=== PATIENT | male | born 1940 | race Caucasian/White ===

== ENCOUNTER 2017-12-26 14:13 | Inpatient (IN) | payer MEDICARE ==
[~2017-12-26] VITALS: Ht 170.2 cm; Wt 93.0 kg
[2017-12-26 14:22] VITALS: BP 129/58; PULSE 94; RESP 16; TEMP 98.5; O2SAT 100
[2017-12-26 15:03] LABS: AUTOMATED NEUTROPHIL # 5.4 TH/MM3 (1.8-7.7); BASOPHIL # 0.1 TH/MM3 (0-0.2); BASOPHIL % 0.7 % (0.0-2.0); EOSINOPHIL # 0.1 TH/MM3 (0-0.4); EOSINOPHIL % 1.4 % (0.0-4.0); HEMATOCRIT 21.9 % (39.0-51.0); HEMOGLOBIN 7.4 GM/DL (13.0-17.0); LYMPH % 28.6 % (9.0-44.0); LYMPHOCYTE # 2.6 TH/MM3 (1.0-4.8); MEAN CELL VOLUME 82.5 FL (80.0-100.0); MEAN CORPUSCULAR HEMOGLOBIN 27.9 PG (27.0-34.0); MEAN CORPUSCULAR HGB CONC 33.8 % (32.0-36.0); MEAN PLATELET VOLUME 8.7 FL (7.0-11.0); MONO % 7.4 % (0.0-8.0); MONOCYTE # 0.7 TH/MM3 (0-0.9); NEUT % 61.9 % (16.0-70.0); PLATELET COUNT 230 TH/MM3 (150-450); RED BLOOD COUNT 2.65 MIL/MM3 (4.50-5.90); RED CELL DISTRIBUTION WIDTH 15.1 % (11.6-17.2); WHITE BLOOD COUNT 8.9 TH/MM3 (4.0-11.0)
[2017-12-26 15:14] LABS: CHLORIDE 104 MEQ/L (98-107); SODIUM (NA) 136 MEQ/L (136-145)
[2017-12-26 15:17] LABS: ALBUMIN 3.2 GM/DL (3.4-5.0); BICARBONATE 22.4 MEQ/L (21.0-32.0); BLOOD UREA NITROGEN 25 MG/DL (7-18); CALCIUM 8.1 MG/DL (8.5-10.1); GLUCOSE,RANDOM 178 MG/DL (74-106)
[2017-12-26 15:20] LABS: ALT (GPT) 18 U/L (12-78); AST (GOT) 16 U/L (15-37)
[2017-12-26 15:21] LABS: CREATININE 0.98 MG/DL (0.60-1.30); GLOMERULAR FILTRATION RATE 74 ML/MIN (>89)
[2017-12-26 15:22] LABS: TOTAL BILIRUBIN ADULT 0.2 MG/DL (0.2-1.0); TOTAL PROTEIN 6.2 GM/DL (6.4-8.2)
[2017-12-26 15:23] LABS: ALKALINE PHOSPHATASE 64 U/L (45-117)
[2017-12-26 15:25] LABS: TROPONIN I LESS THAN 0.02 NG/ML (0.02-0.05)
--- NOTE | 2017-12-26 16:22 | PD ---
HPI Chief Complaint: GI Complaint Time Seen by Provider: 14:30 Travel History International Travel<30 days: No Contact w/Intl Traveler<30days: No Traveled to known affect area: No History of Present Illness HPI This is a 77-year-old male who presented to the ER complaining of black stool. Patient states that he had hamburger 4 days ago and since then he noticed black stool, he denies any blurred vision no dizziness no nausea or vomiting or diarrhea, there is no lightheadedness or loss of consciousness or palpitations. Patient had upper endoscopy done about a year ago at [place], he is unsure when was the last time he had a colonoscopy but states when he had a colonoscopy was normal. PFSH Past Medical History Hx Anticoagulant Therapy: Yes (ASA 81MG DAILY) Social History Tobacco Use: No Allergies-Medications (Allergen,Severity, Reaction): Coded Allergies: Sulfa (Sulfonamide Antibiotics) (Verified Allergy, Severe, HIVES, 12/26/17) Review of Systems Except as stated in HPI: all other systems reviewed are Neg Physical Exam Narrative GENERAL: Alert oriented 3 no acute distress. SKIN: Focused skin assessment warm/dry. HEAD: Atraumatic. Normocephalic. EYES: Pupils equal and round. No scleral icterus. No injection or drainage. ENT: No nasal bleeding or discharge. Mucous membranes pink and moist. NECK: Trachea midline. No JVD. CARDIOVASCULAR: Regular rate and rhythm. No murmur appreciated. RESPIRATORY: No accessory muscle use. Clear to auscultation. Breath sounds equal bilaterally. GASTROINTESTINAL: Abdomen soft, non-tender, nondistended. Hepatic and splenic margins not palpable. MUSCULOSKELETAL: No obvious deformities. No clubbing. No cyanosis. No edema. NEUROLOGICAL: Awake and alert. No obvious cranial nerve deficits. Motor grossly within normal limits. Normal speech. PSYCHIATRIC: Appropriate mood and affect; insight and judgment normal. Data Data Last Documented VS Vital Signs Date Time Temp Pulse Resp B/P (MAP) Pulse Ox O2 Delivery O2 Flow Rate FiO2 12/26/17 14:22 98.5 94 16 129/58 (81) 100 Orders Orders Complete Blood Count With Diff (12/26/17 14:40) Comprehensive Metabolic Panel (12/26/17 14:40) Troponin I (12/26/17 14:40) Occult Blood (Hemoccult) Stool (12/26/17 14:40) Admit Order (Ed Use Only) (12/26/17 16:17) Labs Laboratory Tests Test 12/26/17 14:54 White Blood Count 8.9 TH/MM3 Red Blood Count 2.65 MIL/MM3 Hemoglobin 7.4 GM/DL Hematocrit 21.9 % Mean Corpuscular Volume 82.5 FL Mean Corpuscular Hemoglobin 27.9 PG Mean Corpuscular Hemoglobin Concent 33.8 % Red Cell Distribution Width 15.1 % Platelet Count 230 TH/MM3 Mean Platelet Volume 8.7 FL Neutrophils (%) (Auto) 61.9 % Lymphocytes (%) (Auto) 28.6 % Monocytes (%) (Auto) 7.4 % Eosinophils (%) (Auto) 1.4 % Basophils (%) (Auto) 0.7 % Neutrophils # (Auto) 5.4 TH/MM3 Lymphocytes # (Auto) 2.6 TH/MM3 Monocytes # (Auto) 0.7 TH/MM3 Eosinophils # (Auto) 0.1 TH/MM3 Basophils # (Auto) 0.1 TH/MM3 CBC Comment DIFF FINAL Differential Comment Blood Urea Nitrogen 25 MG/DL Creatinine 0.98 MG/DL Random Glucose 178 MG/DL Total Protein 6.2 GM/DL Albumin 3.2 GM/DL Calcium Level 8.1 MG/DL Alkaline Phosphatase 64 U/L Aspartate Amino Transf (AST/SGOT) 16 U/L Alanine Aminotransferase (ALT/SGPT) 18 U/L Total Bilirubin 0.2 MG/DL Sodium Level 136 MEQ/L Potassium Level 3.6 MEQ/L Chloride Level 104 MEQ/L Carbon Dioxide Level 22.4 MEQ/L Anion Gap 10 MEQ/L Estimat Glomerular Filtration Rate 74 ML/MIN Troponin I LESS THAN 0.02 NG/ML MDM Medical Decision Making Medical Screen Exam Complete: Yes Emergency Medical Condition: Yes Differential Diagnosis Upper GI bleed, lower GI bleed, Malignancy, ulcer Narrative Course This is a 77-year-old male who presents to the ER complaining of black stool for the last 4 days, his hemoglobin of 7.4, patient is little tachycardic. Will admit the patient for 23 hour observation for possible endoscopy. Spoke with Dr. Zee who examined the patient. Diagnosis Primary Impression: Upper GI bleeding Admitting Information Admitting Physician Requests: Admit Condition: Stable Yemi Morris MD Dec 26, 2017 16:22
[2017-12-26] MEDS ORDERED: PANTOPRAZOLE SODIUM 40 MG VIAL IV PUSH ONE (16:30)
[2017-12-26] MEDS ORDERED: SODIUM CHLOR 0.9% 250 ML INJ 250 ML IV ONE ×2 (16:30→22:15)
[2017-12-26 16:47] VITALS: BP 126/58; PULSE 77; RESP 16; O2SAT 100
--- NOTE | 2017-12-26 16:56 | HHI.HP ---
HPI Service [facility] Primary Care Physician Non-Staff Admission Diagnosis UPPER GI BLEEDING, TACHYCARDIA. Diagnoses: (1) Upper GI bleeding Chief Complaint: Black stool Travel History International Travel<30 Days: No Contact w/Intl Traveler <30 Da: No Traveled to Known Affected Are: No History of Present Illness This is a pleasant 77-year-old male patient with a known medical history of CAD and diabetes who presented to the ED with complaints of black stool. Patient states that for the last 4 days he has had at least one bout of black stool each day. He states that he ate a hamburger 4 days ago which may be the source of this. He does admit to recent fatigue. Denies any recent NSAID use. Does admit to taking a baby aspirin daily. Denies any new changes in medicines. He states that he underwent an upper and endoscopy about a year ago which was reportedly negative. His first colonoscopy patient does not remember the last time he had one, but at the time it was unremarkable. Patient denies any recent illness including fever, chills, cough, shortness of breath, abdominal pain, nausea, vomiting, diarrhea or dysuria. Patient's appetite has been good. Patient is originally from [place], visits here a couple months at a time. Review of Systems Constitutional: COMPLAINS OF: Fatigue, DENIES: Fever, Chills Eyes: DENIES: Blurred vision, Diplopia Respiratory: DENIES: Cough Cardiovascular: DENIES: Chest pain Gastrointestinal: COMPLAINS OF: Black stools, DENIES: Abdominal pain, Bloody stools, Constipation, Diarrhea, Nausea, Vomiting Musculoskeletal: DENIES: Joint pain Psychiatric: DENIES: Anxiety Except as stated in HPI: all other systems reviewed are Neg Past Family Social History Past Medical History CAD with history of CABG Diabetes Past Surgical History History of CABG 15 years ago. Right knee replacement. Reported Medications Janumet Aspirin 81 mg daily Allergies: Coded Allergies: Sulfa (Sulfonamide Antibiotics) (Verified Allergy, Severe, HIVES, 12/26/17) Active Ordered Medications Current Medications Medications (Trade) Dose Ordered Sig/Dickson Route Start Time Stop Time Status Last Admin Sodium Chloride 250 ml @ 250 mls/hr BOLUS ONCE IV 12/26/17 16:30 12/26/17 17:29 12/26/17 16:45 Sodium Chloride 1,000 ml @ 75 mls/hr [id number] IV 12/26/17 16:53 UNV (NS Flush) 2 ml UNSCH PRN IV FLUSH 12/26/17 17:00 UNV (NS Flush) 2 ml BID IV FLUSH 12/26/17 21:00 UNV (Tylenol) 650 mg Q4H PRN PO 12/26/17 17:00 UNV (Zofran Inj) 4 mg Q6H PRN IVP 12/26/17 17:00 UNV (Narcan Inj) 0.4 mg UNSCH PRN IV PUSH 12/26/17 17:00 UNV (Selene-Colace) 1 tab BID PO 12/26/17 21:00 UNV (Milk Of Magnesia Liq) 30 ml Q12H PRN PO 12/26/17 17:00 UNV (Senokot) 17.2 mg Q12H PRN PO 12/26/17 17:00 UNV (Dulcolax Supp) 10 mg DAILY PRN RECTAL 12/26/17 17:00 UNV (Protonix Inj) 40 mg Q12H IV PUSH 12/26/17 17:00 UNV Family History Maternal medical history significant for COPD, was a smoker. Paternal medical history significant for COPD, [place] at the age of 50. Social History Patient denies any tobacco, alcohol or illicit drug use. Physical Exam Vital Signs Vital Signs Date Time Temp Pulse Resp B/P (MAP) Pulse Ox O2 Delivery O2 Flow Rate FiO2 12/26/17 16:47 77 16 126/58 (80) 100 Room Air 12/26/17 14:22 98.5 94 16 129/58 (81) 100 Physical Exam GENERAL: Well-developed, well-nourished patient in [facility]. SKIN: Warm and dry. No rash. HEAD: Normocephalic. Atraumatic. EYES: Pupils equal and round. No scleral icterus. No injection or drainage. ENT: No nasal bleeding or discharge. Mucous membranes pink and moist. NECK: Supple. Trachea midline. CARDIOVASCULAR: Regular rate and rhythm. S1, S2 noted. No murmur appreciated. RESPIRATORY: No accessory muscle use. Clear to auscultation. Breath sounds equal bilaterally. GASTROINTESTINAL: Abdomen soft, non-tender, nondistended. Normoactive bowel sounds x4. MUSCULOSKELETAL: No obvious deformities. Extremities without clubbing, cyanosis , or edema. NEUROLOGICAL: Awake and alert. No obvious cranial nerve deficits. Motor grossly within normal limits. 5/5 muscle strength in bilateral upper and lower extremities. Normal speech. PSYCHIATRIC: Appropriate mood and affect; insight and judgment normal. Laboratory Laboratory Tests Test 12/26/17 14:54 White Blood Count 8.9 Red Blood Count 2.65 Hemoglobin 7.4 Hematocrit 21.9 Mean Corpuscular Volume 82.5 Mean Corpuscular Hemoglobin 27.9 Mean Corpuscular Hemoglobin Concent 33.8 Red Cell Distribution Width 15.1 Platelet Count 230 Mean Platelet Volume 8.7 Neutrophils (%) (Auto) 61.9 Lymphocytes (%) (Auto) 28.6 Monocytes (%) (Auto) 7.4 Eosinophils (%) (Auto) 1.4 Basophils (%) (Auto) 0.7 Neutrophils # (Auto) 5.4 Lymphocytes # (Auto) 2.6 Monocytes # (Auto) 0.7 Eosinophils # (Auto) 0.1 Basophils # (Auto) 0.1 CBC Comment DIFF FINAL Differential Comment Blood Urea Nitrogen 25 Creatinine 0.98 Random Glucose 178 Total Protein 6.2 Albumin 3.2 Calcium Level 8.1 Alkaline Phosphatase 64 Aspartate Amino Transf (AST/SGOT) 16 Alanine Aminotransferase (ALT/SGPT) 18 Total Bilirubin 0.2 Sodium Level 136 Potassium Level 3.6 Chloride Level 104 Carbon Dioxide Level 22.4 Anion Gap 10 Estimat Glomerular Filtration Rate 74 Troponin I LESS THAN 0.02 Result Diagram: 12/26/17 1454 12/26/17 1454 Septic Shock Reassessment Septic shock perfusion: reassessment completed Caprini VTE Risk Assessment Caprini VTE Risk Assessment: Mod/High Risk (score >= 2) Caprini Risk Assessment Model Point Value = 1 Point Value = 2 Point Value = 3 Point Value = 5 Age 41-60 Minor surgery BMI > 25 kg/m2 Swollen legs Varicose veins or History of unexplained or recurrent spontaneous Oral contraceptives or hormone replacement Sepsis (< 1 month) Serious lung disease, including pneumonia (< 1 month) Abnormal pulmonary function Acute myocardial infarction Congestive heart failure (< 1 month) History of inflammatory bowel disease Medical patient at bed rest Age 61-74 Arthroscopic surgery Major open surgery (> 45 min) Laparoscopic surgery (> 45 min) Malignancy Confined to bed (> 72 hours) Immobilizing plaster cast Central venous access Age >= 75 History of VTE Family history of VTE Factor V Leiden Prothrombin [id number] Lupus anticoagulant Anticardiolipin antibodies Elevated serum homocysteine Heparin-induced thrombocytopenia Other congenital or acquired thrombophilia Stroke (< 1 month) Elective arthroplasty Hip, pelvis, or leg fracture Acute spinal cord injury (< 1 month) Prophylaxis Regimen Total Risk Factor Score Risk Level Prophylaxis Regimen 0-1 Low Early ambulation 2 Moderate Order ONE of the following: *Sequential Compression Device (SCD) *Heparin 5000 units SQ BID 3-4 Higher Order ONE of the following medications: *Heparin 5000 units SQ TID *Enoxaparin/Lovenox 40 mg SQ daily (WT < 150 kg, CrCl > 30 mL/min) *Enoxaparin/Lovenox 30 mg SQ daily (WT < 150 kg, CrCl > 10-29 mL/min) *Enoxaparin/Lovenox 30 mg SQ BID (WT < 150 kg, CrCl > 30 mL/min) AND/OR *Sequential Compression Device (SCD) 5 or more Highest Order ONE of the following medications: *Heparin 5000 units SQ TID (Preferred with Epidurals) *Enoxaparin/Lovenox 40 mg SQ daily (WT < 150 kg, CrCl > 30 mL/min) *Enoxaparin/Lovenox 30 mg SQ daily (WT < 150 kg, CrCl > 10-29 mL/min) *Enoxaparin/Lovenox 30 mg SQ BID (WT < 150 kg, CrCl > 30 mL/min) AND *Sequential Compression Device (SCD) Assessment and Plan Assessment and Plan This is a pleasant 77-year-old male patient with a known medical history of CAD and diabetes who presented to the ED with complaints of black stool. Normocytic normochromic anemia suspect secondary to GI blood loss Hemoccult stool positive Hemoglobin 7.4/Hematocrit 21.9. Trend H&H. Patient is asymptomatic at this time. Patient is with controlled heart rate, tachycardia resolved. Will hold off on transfusion. Protonix 40 mg IV BID. Monitor for any active bleeding. Consult placed to gastroenterology, appreciate further input recommendations. Spoke to Dr. Hawkins who will see patient tomorrow with plan for EGD. Will keep n.p.o. after midnight. Supplemental O2 as needed. Comfortable on room air. Supportive care. Type 2 diabetes mellitus, chronic: Accu-Chek before meals at bedtime, sliding scale, cover as needed. Follow BS trends. CAD with history of CABG: We will hold aspirin for now. Possible GI bleed. DVT Prophylaxis: SCDs. Hold chemical prophylaxis for active bleeding. Aurea Orozco Dec 26, 2017 16:56
[2017-12-26] MEDS ORDERED: BISACODYL 10 MG SUPP RECTAL PRN (17:00)
[2017-12-26] MEDS ORDERED: ONDANSETRON HCL 4 MG/2 ML VIAL IVP PRN (17:00)
[2017-12-26] MEDS ORDERED: GLUCAGON 1 MG/ML VIAL OTHER PRN (17:00)
[2017-12-26] MEDS ORDERED: NALOXONE HCL 0.4 MG/ML AMP IV PUSH PRN (17:00)
[2017-12-26] MEDS ORDERED: SENNOSIDES 8.6 MG TAB PO PRN (17:00)
[2017-12-26] MEDS ORDERED: ACETAMINOPHEN 325 MG TAB PO PRN (17:00)
[2017-12-26] MEDS ORDERED: SODIUM CHLORIDE 0.9% FLUSH 10 ML FLUSH IV FLUSH PRN (17:00)
[2017-12-26] MEDS: INSULIN ASPART SUPPLEMENTAL SCALE SQ SCH ×2 (17:00→20:36)
[2017-12-26] MEDS ORDERED: MAGNESIUM HYDROXIDE SUSP 30 ML CUP PO PRN (17:00)
[2017-12-26] MEDS ORDERED: DEXTROSE 50% IN WATER 50 ML VIAL(D50) IV PUSH PRN (17:00)
[2017-12-26] MEDS ORDERED: CARV3.12 PO (17:20)
[2017-12-26] MEDS ORDERED: TAMS0.4C4 PO (17:20)
[2017-12-26] MEDS ORDERED: LISI-519 PO (17:20)
[2017-12-26] MEDS ORDERED: ASPI-516 CHEW (17:20)
[2017-12-26] MEDS ORDERED: JANU50TA8 PO (17:20)
[2017-12-26] MEDS ORDERED: FINA5TAB2 PO (17:20)
[2017-12-26] MEDS ORDERED: ATOR20TA15 PO (17:20)
[2017-12-26] MEDS: SODIUM CHLOR 0.45% 1000 ML INJ 1,000 ML IV SCH (17:43)
[2017-12-26 17:50] VITALS: BP 140/69
[2017-12-26 20:00] VITALS: BP 119/58; PULSE 79; RESP 20; TEMP 98.3; O2SAT 95
[2017-12-26] MEDS: SODIUM CHLORIDE 0.9% FLUSH 10 ML FLUSH IV FLUSH SCH (20:36)
[2017-12-26] MEDS: DOCUSATE SODIUM 50 MG/SENNA 8.6 MG TAB PO SCH (20:36)
[2017-12-26 21:53] LABS: HEMATOCRIT 21.5 % (39.0-51.0)
[2017-12-26 21:58] LABS: HEMOGLOBIN 6.8 GM/DL (13.0-17.0)
[2017-12-26] MEDS ORDERED: FUROSEMIDE 20 MG/2 ML VIAL IV PUSH ONE (22:15)
[2017-12-27] VITALS (11 sets, daily range): BP systolic 134–202; BP diastolic 66–84; PULSE 61–87; RESP 16–20; TEMP 96.5–98.5; O2SAT 94–100
[2017-12-27] MEDS: PANTOPRAZOLE SODIUM 40 MG VIAL IV PUSH SCH ×2 (05:50→16:45)
[2017-12-27] MEDS: INSULIN ASPART SUPPLEMENTAL SCALE SQ SCH ×4 (08:00→20:59)
[2017-12-27] MEDS: DOCUSATE SODIUM 50 MG/SENNA 8.6 MG TAB PO SCH ×2 (09:00→20:59)
[2017-12-27] MEDS: SODIUM CHLORIDE 0.9% FLUSH 10 ML FLUSH IV FLUSH SCH ×2 (09:00→21:00)
--- NOTE | 2017-12-27 10:13 | HHI.PR ---
Subjective Remarks Follow-up GI bleed. Patient seen and examined, lying i in bed comfortably denies any acute events overnight. Hemoglobin did drop to 6.8. Receiving 2 units PRBC today. Undergoing EGD with gastroenterology today at 3 PM. Vital signs are stable. Patient denies any headache, dizziness, lightheadedness or even weakness. Objective Vitals Vital Signs Date Time Temp Pulse Resp B/P (MAP) Pulse Ox O2 Delivery O2 Flow Rate FiO2 12/27/17 09:03 97.2 64 18 141/74 (96) 94 12/27/17 06:15 97.4 74 20 139/84 (102) 97 12/27/17 06:15 97.4 74 20 139/84 97 12/27/17 02:29 97.5 77 18 144/79 (100) 99 12/27/17 02:29 97.5 77 18 144/79 99 12/27/17 02:12 98.5 81 20 142/80 (100) 99 12/27/17 02:12 98.5 81 18 142/80 99 12/27/17 01:05 21 12/27/17 00:00 98.5 87 20 134/69 (90) 98 12/26/17 20:00 98.3 79 20 119/58 (78) 95 12/26/17 17:50 72 16 140/69 (92) 97 12/26/17 16:47 77 16 126/58 (80) 100 Room Air 12/26/17 14:22 98.5 94 16 129/58 (81) 100 I/O 12/26/17 12/26/17 12/26/17 12/27/17 12/27/17 12/27/17 07:00 15:00 23:00 07:00 15:00 23:00 Intake Total 250 ml 510 ml 460 ml Balance 250 ml 510 ml 460 ml Intake Oral 60 ml IV Total 250 ml Packed Cells 400 ml 400 ml Blood Product IV Normal Saline Flush 110 ml # Voids 3 # Bowel Movements 0 Result Diagram: 12/26/17213812/26/17 8004 Objective Remarks GENERAL: Well-developed, well-nourished patient in [facility]. SKIN: Warm and dry. No rash. Pale HEAD: Normocephalic. Atraumatic. EYES: Pupils equal and round. No scleral icterus. No injection or drainage. ENT: No nasal bleeding or discharge. Mucous membranes pink and moist. NECK: Supple. Trachea midline. CARDIOVASCULAR: Regular rate and rhythm. S1, S2 noted. No murmur appreciated. RESPIRATORY: No accessory muscle use. Clear to auscultation. Breath sounds equal bilaterally. GASTROINTESTINAL: Abdomen soft, non-tender, nondistended. Normoactive bowel sounds x4. MUSCULOSKELETAL: No obvious deformities. Extremities without clubbing, cyanosis , or edema. NEUROLOGICAL: Awake and alert. No obvious cranial nerve deficits. Motor grossly within normal limits. 5/5 muscle strength in bilateral upper and lower extremities. Normal speech. PSYCHIATRIC: Appropriate mood and affect; insight and judgment normal. A/P Problem List: (1) Upper GI bleeding ICD Code: K92.2 - Gastrointestinal hemorrhage, unspecified Status: Acute Assessment and Plan This is a pleasant 77-year-old male patient with a known medical history of CAD and diabetes who presented to the ED with complaints of black stool. Normocytic normochromic anemia suspect secondary to GI blood loss Hemoccult stool positive Hemoglobin 7.4/Hematocrit 21.9 on presentation. Trending H&H, hemoglobin dropped to 6.8 overnight. Received 2 units PRBC. Hemoglobin up to 8.9. Patient is asymptomatic at this time. Patient is with controlled heart rate, tachycardia resolved. Continue Protonix 40 mg IV BID. Monitor for any active bleeding. Gastroenterology following, appreciate further input recommendations. Plan for EGD today. N.p.o.. Supplemental O2 as needed. Comfortable on room air. Supportive care. Type 2 diabetes mellitus, chronic: Accu-Chek before meals at bedtime, sliding scale, cover as needed. Follow BS trends. CAD with history of CABG: We will hold aspirin for now. Possible GI bleed. DVT Prophylaxis: SCDs. Hold chemical prophylaxis for active bleeding. Discharge Planning Depending on stability of hemoglobin/hematocrit and findings of EGD patient can likely go home later this afternoon or tomorrow morning. Aurea Orozco Dec 27, 2017 10:13
[2017-12-27 10:59] LABS: AUTOMATED NEUTROPHIL # 5.8 TH/MM3 (1.8-7.7); BASOPHIL % 0.4 % (0.0-2.0); EOSINOPHIL # 0.1 TH/MM3 (0-0.4); EOSINOPHIL % 1.1 % (0.0-4.0); HEMATOCRIT 26.3 % (39.0-51.0); HEMOGLOBIN 8.9 GM/DL (13.0-17.0); LYMPH % 27.5 % (9.0-44.0); LYMPHOCYTE # 2.5 TH/MM3 (1.0-4.8); MEAN CELL VOLUME 81.2 FL (80.0-100.0); MEAN CORPUSCULAR HEMOGLOBIN 27.6 PG (27.0-34.0); MEAN PLATELET VOLUME 7.8 FL (7.0-11.0); MONO % 8.4 % (0.0-8.0); MONOCYTE # 0.8 TH/MM3 (0-0.9); NEUT % 62.6 % (16.0-70.0); PLATELET COUNT 216 TH/MM3 (150-450); RED BLOOD COUNT 3.24 MIL/MM3 (4.50-5.90); WHITE BLOOD COUNT 9.2 TH/MM3 (4.0-11.0)
[2017-12-27 11:10] LABS: BICARBONATE 28.8 MEQ/L (21.0-32.0)
[2017-12-27 11:13] LABS: CREATININE 0.82 MG/DL (0.60-1.30)
--- NOTE | 2017-12-27 13:38 | EKG ---
Date Performed: 12/27/2017 Time Performed: 10:52:39 PTAGE: 77 years EKG: SINUS BRADYCARDIA NONSPECIFIC INTRAVENTRICULAR CONDUCTION DELAY NONSPECIFIC ST & T-WAVE ABN ORMALITY BORDERLINE ECG NO PREVIOUS TRACING DOCTOR: Aaron العلي Interpretating Date/Time 12/27/2017 13:37:02
[2017-12-27] MEDS ORDERED: LACTATED RINGER'S 1000 ML INJ 1,000 ML ONE (14:24)
--- NOTE | 2017-12-27 15:30 | GIPROC ---
[facility] [address] [place] [address], [id number] EGD PROCEDURE REPORT EXAM DATE: 12/27/2017 PATIENT NAME: Kvng Bryant MR #: [id number] BIRTHDATE: 1940 ATTENDING: Farrukh More MD ORDER #: [id number] DISPENSER OPERATOR: Nadeem Alex STATUS: inpatient INDICATIONS: The patient is a 77 yr old male here for an EGD due to iron deficiency anemia and melena PROCEDURE PERFORMED: EGD w/ biopsy MEDICATIONS: None and Per Anesthesia. TOPICAL ANESTHETIC: CONSENT: The patient understands the risks and benefits of the procedure and understands that these risks include, but are not limited to: sedation, allergic reaction, infection, perforation and/or bleeding. Alternative means of evaluation and treatment include, among others: physical exam, x-rays, and/or surgical intervention. The patient elects to proceed with this endoscopic procedure. medical equipment was checked for proper function. Hand hygiene and appropriate measures for infection prevention was taken. After the risks, benefits and alternatives of the procedure were thoroughly explained, Informed consent was verified, confirmed and timeout was successfully executed by the treatment team. The patient was anesthetized with topical anesthesia and the Pentax [id number] endoscope was introduced through the mouth and advanced to the second portion of the duodenum. Retroflexed views revealed no abnormalities The gastroscope was then slowly withdrawn and removed. ESOPHAGUS: There was LA Class A esophagitis noted. STOMACH: There was mild gastritis in the gastric antrum. A biopsy was performed using cold forceps. Sample sent for histology. DUODENUM: The duodenal mucosa appeared normal in the bulb and second portion of the duodenum. ADVERSE EVENTS: There were no complications. IMPRESSIONS: 1. There was LA Class A esophagitis noted 2. There was mild gastritis in the gastric antrum; biopsy was performed 3. Normal duodenal mucosa in the bulb and second portion of the duodenum 4. Retroflexed views revealed no abnormalities RECOMMENDATIONS: 1. Await biopsy results. Biopsy results will not be ready for 7-10 days. If you don't hear from us in two weeks, call our office for biopsy results. 2. Anti-reflux regimen 3. Continue PPI 4. Colonoscopy PATIENT CONDITION: stable DISPOSITION: Inpatient REPEAT EXAM: Return 3 years EGD pending biopsy results Farrukh More MD eSigned: Farrukh More MD 12/27/2017 3:29 PM cc: PATIENT NAME: Kvng Bryant MR#: [id number]
[2017-12-27] MEDS ORDERED: PEG (High)/E-LYTE SOLN 4000 ML BTL PO ONE (16:00)
--- NOTE | 2017-12-27 16:25 | MB ---
cc: Farrukh More MD,Dianelys Matos MD DATE OF CONSULT: 12/27/2017 REASON FOR CONSULTATION: GI bleeding and anemia. Mr. Bryant is a 77-year-old gentleman, basically presented with melena, found to have a hemoglobin of 6.9 that has prompted GI consultation. Patient has had no active bleeding while in the hospital. He denies any abdominal pain, hematemesis, nausea, vomiting. He says he has had a similar episode in the past where he had an EGD and a colonoscopy, but essentially nothing was found. I [place]. REVIEW OF SYSTEMS: Currently no abdominal pain, no hematemesis or hematochezia, no rashes. PAST MEDICAL HISTORY: Coronary artery disease, diabetes. SURGICAL HISTORY: Coronary artery bypass surgery, knee replacement. MEDICINES ON ADMISSION: Janumet and aspirin. Currently also on Protonix. ALLERGIES: TO SULFA DRUGS. FAMILY HISTORY: Noncontributory. SOCIAL HISTORY: No tobacco, no alcohol. PHYSICAL EXAMINATION: Reveals a well-nourished man in no apparent distress. Vitals are stable. HEAD AND NECK: Anicteric sclerae. CHEST: Bilateral air entry with rales. ABDOMEN: Obese, soft, nontender, no hepatosplenomegaly. Bowel sounds are present. CENTRAL NERVOUS SYSTEM: Nonfocal. LABORATORIES: Reveal hemoglobin of 8.9. Creatinine 0.82. Liver function tests are normal. IMPRESSION: Anemia with gastrointestinal bleeding. RECOMMENDATIONS: EGD done earlier today was essentially unremarkable, just showed minimal gastritis. Plan is now to proceed with a colonoscopy. Prep orders have been written. Continue to monitor labs. Liquid diet today. Will follow with you. Thank you for this referral. MD CAMMIE Magana/ABEL , 04:11 PM , 04:24 PM
[2017-12-27] MEDS: SODIUM CHLOR 0.45% 1000 ML INJ 1,000 ML IV SCH (16:54)
[2017-12-27 17:25] LABS: HEMATOCRIT 27.5 % (39.0-51.0); HEMOGLOBIN 9.4 GM/DL (13.0-17.0)
[2017-12-28] VITALS: BP 152/68; PULSE 67; RESP 20; TEMP 98; O2SAT 100
[2017-12-28 04:00] VITALS: BP 144/61; PULSE 85; RESP 20; TEMP 97.8; O2SAT 98
[2017-12-28] MEDS: PANTOPRAZOLE SODIUM 40 MG VIAL IV PUSH SCH (04:59)
[2017-12-28] MEDS: INSULIN ASPART SUPPLEMENTAL SCALE SQ SCH ×2 (07:22→11:17)
[2017-12-28 08:00] VITALS: BP 128/69; PULSE 67; RESP 16; TEMP 97.5; O2SAT 97
[2017-12-28] MEDS: DOCUSATE SODIUM 50 MG/SENNA 8.6 MG TAB PO SCH (09:00)
[2017-12-28] MEDS: SODIUM CHLORIDE 0.9% FLUSH 10 ML FLUSH IV FLUSH SCH (09:00)
--- NOTE | 2017-12-28 10:13 | PD.PROCEDR ---
GI Procedure PROCEDURE PERFORMED Colonoscopy with ablation of polyp, snare polypectomy INDICATION FOR PROCEDURE Anemia PROCEDURE: The procedure, risks and benefits were discussed with Mr. Bryant and informed consent was obtained. Anesthesia sedated him with Diprivan. He was placed in the left lateral decubitus position. Colonoscopy: The Pentax videoscope was introduced through the rectum and advanced to , terminal ileum. Retroflexion was performed in the rectum. Colonic prep was good SPECIMENS REMOVED: Colon polyp COMPLICATIONS: None IMPRESSION FINDINGS: Few diverticulosis throughout the colon No sign of active bleeding 2 small polyp in the ascending colon ablated with heat One polyp flat about 1-1/2 cm in the ascending colon removed by snare Internal hemorrhoid Otherwise normal exam PLAN: May feed patient as tolerated Follow-up biopsy Colonoscopy in 3 years Capsule endoscopy as an outpatient If hemoglobin stable patient may be discharged from GI stand Sakina Cardoza MD Dec 28, 2017 10:13
--- NOTE | 2017-12-28 10:14 | HHI.GIFU ---
Subjective Remarks Patient is feeling well, no active bleeding, laying in bed comfortably, tolerated prep for colonoscopy Objective Vitals I&O Vital Signs Date Time Temp Pulse Resp B/P (MAP) Pulse Ox O2 Delivery O2 Flow Rate FiO2 12/28/17 08:00 97.5 67 16 128/69 (88) 97 12/28/17 04:00 97.8 85 20 144/61 (88) 98 Manual Cuff/Auscultation 12/28/17 00:00 98.0 67 20 152/68 (96) 100 12/27/17 20:27 95 21 12/27/17 20:00 97.5 61 20 202/82 (122) 98 172/76 (108) 12/27/17 17:24 96.5 61 16 180/77 (111) 97 12/27/17 15:45 75 16 103/50 (67) 96 12/27/17 15:35 97.8 62 14 103/51 (68) 100 12/27/17 15:03 96 21 12/27/17 12:03 97.8 77 16 141/66 (91) 94 12/27/17 10:14 97.6 83 16 150/70 100 I/O 12/27/17 12/27/17 12/27/17 12/28/17 12/28/17 12/28/17 07:00 15:00 23:00 07:00 15:00 23:00 Intake Total 510 ml 460 ml 2725 ml 2000 ml Balance 510 ml 460 ml 2725 ml 2000 ml Intake Oral 60 ml 1200 ml Oral Supplement 2000 ml IV Total 1525 ml 0 ml Packed Cells 400 ml 400 ml Blood Product IV Normal Saline Flush 110 ml # Voids 3 4 8 1 # Bowel Movements 0 14 Laboratory Laboratory Tests Test 12/27/17 10:45 12/27/17 17:22 White Blood Count 9.2 Red Blood Count 3.24 Hemoglobin 8.9 9.4 Hematocrit 26.3 27.5 Mean Corpuscular Volume 81.2 Mean Corpuscular Hemoglobin 27.6 Mean Corpuscular Hemoglobin Concent 34.0 Red Cell Distribution Width 15.0 Platelet Count 216 Mean Platelet Volume 7.8 Neutrophils (%) (Auto) 62.6 Lymphocytes (%) (Auto) 27.5 Monocytes (%) (Auto) 8.4 Eosinophils (%) (Auto) 1.1 Basophils (%) (Auto) 0.4 Neutrophils # (Auto) 5.8 Lymphocytes # (Auto) 2.5 Monocytes # (Auto) 0.8 Eosinophils # (Auto) 0.1 Basophils # (Auto) 0.0 CBC Comment DIFF FINAL Differential Comment Blood Urea Nitrogen 18 Creatinine 0.82 Random Glucose 114 Calcium Level 8.0 Sodium Level 138 Potassium Level 3.8 Chloride Level 104 Carbon Dioxide Level 28.8 Anion Gap 5 Estimat Glomerular Filtration Rate 91 Physical Exam HEENT: Pupils round and reactive to light; normocephalic; atraumatic; no jaundice. Throat is clear. NECK: Neck is supple, no JVD, no lymphadenopathy. CHEST: Chest is clear to auscultation and percussion. CARDIAC: Regular rate and rhythm with no murmur gallop or rubs. ABDOMEN: Soft, nondistended, nontender; no hepatosplenomegaly; bowel sounds are present in all four quadrants. Obese EXTREMITIES: No clubbing, cyanosis, or edema. SKIN: Normal; no rash; no jaundice. [employer] REPA[employer]ER: No focal deficits; alert and oriented times three. Assessment and Plan Plan Patient has severe anemia, upper endoscopy showed gastritis, no active bleeding , patient had colonoscopy today, , hemoglobin stable at this time after transfusion IMPRESSION FINDINGS: Few diverticulosis throughout the colon No sign of active bleeding 2 small polyp in the ascending colon ablated with heat One polyp flat about 1-1/2 cm in the ascending colon removed by snare Internal hemorrhoid Otherwise normal exam PLAN: May feed patient as tolerated Follow-up biopsy Colonoscopy in 3 years Capsule endoscopy as an outpatient If hemoglobin stable patient may be discharged from GI stand Continue PPI Sakina Cardoza MD Dec 28, 2017 10:14
--- NOTE | 2017-12-28 10:35 | HHI.PR ---
Subjective Remarks Follow-up GI bleed. Patient underwent colonoscopy today. Patient seen and examined, lying in bed comfortably. Spoke to GI doctor who clears patient to discharge today if hemoglobin stable at 1600. Patient denies any pain. Is doing well. Vital signs are stable. Afebrile. Objective Vitals Vital Signs Date Time Temp Pulse Resp B/P (MAP) Pulse Ox O2 Delivery O2 Flow Rate FiO2 12/28/17 10:18 98.1 68 20 118/64 (82) 99 12/28/17 08:00 97.5 67 16 128/69 (88) 97 12/28/17 04:00 97.8 85 20 144/61 (88) 98 Manual Cuff/Auscultation 12/28/17 00:00 98.0 67 20 152/68 (96) 100 12/27/17 20:27 95 21 12/27/17 20:00 97.5 61 20 202/82 (122) 98 172/76 (108) 12/27/17 17:24 96.5 61 16 180/77 (111) 97 12/27/17 15:45 75 16 103/50 (67) 96 12/27/17 15:35 97.8 62 14 103/51 (68) 100 12/27/17 15:03 96 21 12/27/17 12:03 97.8 77 16 141/66 (91) 94 I/O 12/27/17 12/27/17 12/27/17 12/28/17 12/28/17 12/28/17 07:00 15:00 23:00 07:00 15:00 23:00 Intake Total 510 ml 460 ml 2725 ml 2000 ml Balance 510 ml 460 ml 2725 ml 2000 ml Intake Oral 60 ml 1200 ml Oral Supplement 2000 ml IV Total 1525 ml 0 ml Packed Cells 400 ml 400 ml Blood Product IV Normal Saline Flush 110 ml # Voids 3 4 8 1 # Bowel Movements 0 14 Result Diagram: 12/27/17 1722 12/27/17 1045 Objective Remarks GENERAL: Well-developed, well-nourished patient in NAD. SKIN: Warm and dry. No rash. Pale HEAD: Normocephalic. Atraumatic. EYES: Pupils equal and round. No scleral icterus. No injection or drainage. ENT: No nasal bleeding or discharge. Mucous membranes pink and moist. NECK: Supple. Trachea midline. CARDIOVASCULAR: Regular rate and rhythm. S1, S2 noted. No murmur appreciated. RESPIRATORY: No accessory muscle use. Clear to auscultation. Breath sounds equal bilaterally. GASTROINTESTINAL: Abdomen soft, non-tender, nondistended. Normoactive bowel sounds x4. MUSCULOSKELETAL: No obvious deformities. Extremities without clubbing, cyanosis , or edema. NEUROLOGICAL: Awake and alert. No obvious cranial nerve deficits. Motor grossly within normal limits. 5/5 muscle strength in bilateral upper and lower extremities. Normal speech. PSYCHIATRIC: Appropriate mood and affect; insight and judgment normal. A/P Problem List: (1) Upper GI bleeding ICD Code: K92.2 - Gastrointestinal hemorrhage, unspecified Status: Acute Assessment and Plan This is a pleasant 77-year-old male patient with a known medical history of CAD and diabetes who presented to the ED with complaints of black stool. Normocytic normochromic anemia suspect secondary to GI blood loss Hemoccult stool positive Hemoglobin 7.4/Hematocrit 21.9 on presentation. Status post 2 units PRBC. Hemoglobin up to 9.4. Patient is asymptomatic at this time. Patient is with controlled heart rate, tachycardia resolved. Continue Protonix 40 mg IV BID. Monitor for any active bleeding. Gastroenterology following, appreciate further input recommendations. Status post EGD, no significant findings. Underwent colonoscopy today, diverticulosis throughout the colon, no sign of active bleeding, 2polyps in the ascending colon ablated with heat. One polyp removed by snare. Internal hemorrhoid. OK to discharge if H&H stable at 1600. Recommendations to follow up in office to undergo capsule endoscopy. Colonoscopy in 3 years. Supplemental O2 as needed. Comfortable on room air. Supportive care. Type 2 diabetes mellitus, chronic: Accu-Chek before meals at bedtime, sliding scale, cover as needed. Follow BS trends. CAD with history of CABG: We will hold aspirin for now. Possible GI bleed. DVT Prophylaxis: SCDs. Hold chemical prophylaxis for active bleeding. Discharge Planning Dc home today. Aurea Orozco Dec 28, 2017 10:35
[2017-12-28] MEDS: SODIUM CHLOR 0.45% 1000 ML INJ 1,000 ML IV SCH (10:55)
[2017-12-28] MEDS ORDERED: LACTATED RINGER'S 1000 ML INJ 1,000 ML ONE (11:51)
[2017-12-28 12:00] VITALS: BP 175/80; PULSE 56; RESP 1; TEMP 96.3; O2SAT 99
[2017-12-28] MEDS ORDERED: PROPOFOL 200 MG/20 ML AMP IV ONE (12:00)
[2017-12-28] MEDS ORDERED: LIDOCAINE HCL 1% PF 5 ML SYRINGE OTHER ONE (12:00)
[2017-12-28] MEDS ORDERED: PHENYLEPH/NS 1000 MCG/10 ML SYR IV ONE (12:00)
--- NOTE | 2017-12-28 12:23 | HHI.DCPOC ---
Discharge Care Plan Diagnosis: (1) Diverticulosis (2) GI bleed (3) Diabetes (4) CAD (coronary artery disease) Goals to Promote Your Health * To prevent worsening of your condition and complications * To maintain your health at the optimal level Directions to Meet Your Goals Take your medications as prescribed Follow your dietary instruction Follow activity as directed Keep your appointments as scheduled Take your immunizations and boosters as scheduled If your symptoms worsen call your PCP, if no PCP go to Urgent Care Center or Emergency Room Smoking is Dangerous to Your Health. Avoid second hand smoke Call the 24-hour hour crisis hotline for domestic abuse at Aurea Orozco Dec 28, 2017 12:23
[2017-12-28] MEDS ORDERED: PROT40TA PO (12:26)
[2017-12-28 13:00] VITALS: BP 167/75
[2017-12-28 14:56] LABS: HEMOGLOBIN 9.3 GM/DL (13.0-17.0)
== END 2017-12-28 15:35 | disposition home or self-care (01) | DRG 378 ==
LOC: PHED 14:13 → PHEDA 16:18 → PH3B 17:54 → OBSVTOIN 12-27 11:00
PROVIDERS: ADMIT Hospitalist; ATTEND Hospitalist
PROC: 0DB78ZX Excision of Stomach, Pylorus, Via Natural or Artificial Opening Endoscopic, Diagnostic (ICD-10-PCS; 2017-12-27)
PROC: 30233N1 Transfusion of Nonautologous Red Blood Cells into Peripheral Vein, Percutaneous Approach (ICD-10-PCS; 2017-12-27)
PROC: 0D5K8ZZ Destruction of Ascending Colon, Via Natural or Artificial Opening Endoscopic (ICD-10-PCS; 2017-12-28)
PROC: 0DBK8ZZ Excision of Ascending Colon, Via Natural or Artificial Opening Endoscopic (ICD-10-PCS; principal; 2017-12-28 09:38)
DX: K29.71 Gastritis, unspecified, with bleeding (principal); D62 Acute posthemorrhagic anemia; E11.9 Type 2 diabetes mellitus without complications; K57.31 Diverticulosis of large intestine without perforation or abscess with bleeding; D12.2 Benign neoplasm of ascending colon; K20.9 Esophagitis, unspecified; K64.8 Other hemorrhoids; I25.10 Atherosclerotic heart disease of native coronary artery without angina pectoris; R00.0 Tachycardia, unspecified; Z79.84 Long term (current) use of oral hypoglycemic drugs; Z88.2 Allergy status to sulfonamides; Z95.1 Presence of aortocoronary bypass graft; Z96.651 Presence of right artificial knee joint
CPT/HCPCS: 36430; 80048; 80053; 82948; 84484; 85014; 85018; 85025; 86850; 86900; 86901; 86920; 88305; 88312; 93005; 96361; 96374; C9113; G0378; J1815; J1940; J2370; J7050; J7120; P9016